=== PATIENT | male | born 1970 | race Caucasian/White ===

== ENCOUNTER 2017-12-14 21:07 | Inpatient (IN) | payer OTHER ==
[~2017-12-14] VITALS: Ht 180.3 cm; Wt 111.4 kg
[~2017-12-14 21:07] MED LIST: ANAPROX DS550 M1 PO; DILAUDID2 MG PO; DILAUDID4 MG PO; FLEXERIL10 MG PO; GABAPENTIN100 MG PO; HORIZANT300 MG PO; HYDROCODON-ACE1 EAC7 PO; LIORESAL10 MG PO; NEURONTIN100 MG PO; OMEPRAZOLE40 M1 PO; OXYCODONE HCL15 MG PO; OXYCONTIN10 MG PO; PREDNISONE20 MG PO; SOMA350 MG PO; VALIUM10 MG PO
[2017-12-15] MEDS ORDERED: ATIVAN1 MG PO (07:04)
[2017-12-15] MEDS ORDERED: PROMETHAZINE HC25 M1 PO (07:05)
[2017-12-15 07:06] VITALS: BP 148/92
[2017-12-15 13:14] VITALS: BP 136/75
[2017-12-15 16:23] VITALS: BP 134/87
[2017-12-15 17:37] VITALS: BP 134/87
[2017-12-15 19:05] VITALS: BP 114/56
[2017-12-15 22:46] VITALS: BP 114/56
== END 2017-12-15 22:00 | disposition home or self-care (01) | DRG 516 ==
LOC: ENRESERV 21:07 → 2SOUTH 12-15 06:39 → ENRESERV 12-15 11:34 → SDC 12-15 12:01 → 3EAST 12-15 12:20 → EDSTATUS 12-15 12:40 → 2SOUTH 12-15 12:41 → 3EAST 12-15 12:54 → 2SOUTH 12-15 16:02 → 3EAST 12-15 22:00
PROC: 0SP304Z Removal of Internal Fixation Device from Lumbosacral Joint, Open Approach (ICD-10-PCS; principal; 2017-12-15)
DX: M47.815 Spondylosis without myelopathy or radiculopathy, thoracolumbar region (principal); G90.50 Complex regional pain syndrome I, unspecified; Z98.1 Arthrodesis status; F17.210 Nicotine dependence, cigarettes, uncomplicated; D17.9 Benign lipomatous neoplasm, unspecified; G89.4 Chronic pain syndrome; M51.36 Other intervertebral disc degeneration, lumbar region
CPT/HCPCS: 72100; 76000; 88300; 88304; J0171; J0690; J1170; J1885; J2250; J2405; J3010; J3370; J3480; S0020